=== PATIENT | male | born 1960 | race African-American/Black ===

== ENCOUNTER 2016-05-28 05:53 | Day surgery (SDC) ==
[2016-05-22 16:04] LABS: MANUAL DIFF NEEDED? NO
[2016-05-22 16:05] LABS: BASO% 0.4 % (0.0-0.8); EOS% 1.8 % (0.0-10.0); HEMATOCRIT 43.4 % (42.0-52.0); HEMOGLOBIN 15.1 g/dL (14.0-18.0); LYMPH# 1.63 X1000 (1.2-3.4); LYMPH% 29.6 % (20.5-51.1); MCH 26.6 PG (27-31); MCHC 34.8 g/dL (33-37); MCV 76.5 FL (81-99); MONO# 0.41 X1000 (0.11-0.59); MONO% 7.5 % (1.7-9.3); NEUT% 60.7 % (42.2-75.2); PLT 278 X1000 (130-400); RBC 5.67 XMIL (4.7-6.1)
--- NOTE | 2016-05-22 16:07 | EKG Report ---
Test Performed on : 05/22/2016 3:49:50 PM Test Reason : PAT Blood Pressure : / mmHG Vent. Rate : 082 BPM Atrial Rate : 082 BPM P-R Int : 172 ms QRS Dur : 098 ms QT Int : 380 ms P-R-T Axes : 053 -27 047 degrees QTc Int : 443 ms Normal sinus rhythm. Nonspecific T wave abnormality Abnormal ECG No previous ECGs available Confirmed by Keri HANSON, Cyril Peter ([id number]) on 05/24/2016 1:15:10 PM
[2016-05-22 16:31] LABS: AGAP 14; BUN 12 mg/dL (8-22); CALCIUM 8.6 mg/dL (8.8-10.2); CHLORIDE 100 mmol/L (98-107); COSMO 280; POTASSIUM 4.2 mmol/L (3.5-5.1); SODIUM 136 mmol/L (136-145); TCO2 22 mmol/L (25-35)
[2016-05-28] MEDS ORDERED: PEPCID ONE (06:34)
[2016-05-28] MEDS ORDERED: REGLAN ONE (06:35)
[2016-05-28] MEDS ORDERED: LR 1,000 ML ONE ×2 (06:35→15:05)
[2016-05-28] MEDS ORDERED: GENTAMICIN 80 MG/NS 50 ML ONE (06:35)
[2016-05-28] MEDS ORDERED: KEFZOL 2 GM/D5W 50 ML ONE (06:35)
[2016-05-28] MEDS ORDERED: MARCAINE 0.25% PF ONE ×3 (08:01→12:20)
[2016-05-28] MEDS ORDERED: NEOSPORIN G.U. IRRIGANT ONE (08:01)
[2016-05-28] MEDS: MORPHINE ONE ×5 (12:55→13:47)
[2016-05-28] MEDS ORDERED: FENTANYL ONE (12:58)
[2016-05-28] MEDS ORDERED: DIPRIVAN 1% ONE (12:58)
[2016-05-28] MEDS ORDERED: B & O 15A SUPP ONE (13:04)
[2016-05-28] MEDS ORDERED: PERCOCET-5 ONE (14:09)
[2016-05-28] MEDS ORDERED: ZOFRAN ONE (15:05)
[2016-05-28] MEDS ORDERED: QUELICIN (DOSE) ONE (15:05)
[2016-05-28] MEDS ORDERED: XYLOCAINE-MPF 2% ONE (15:05)
[2016-05-28] MEDS ORDERED: DECADRON ONE (15:05)
[2016-05-28] MEDS ORDERED: ROBINUL ONE (15:05)
[2016-05-28] MEDS ORDERED: ZEMURON ONE (15:05)
[2016-05-28 15:19] VITALS: BP 131/73
--- NOTE | 2016-05-29 15:12 | OPERATIVE NOTE ---
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 PROCEDURE: Implantation of inflatable penile prosthesis, AMS 700 series. HISTORY AND FINDINGS: Mr. England has erectile dysfunction not responding to p.o. medication such as Cialis and Viagra. He decided to have a penile prosthesis, multi-component inflatable variety. The patient and his were inform about the procedure, the risks and benefits. was given about infection, erosion, leakage, etc. DESCRIPTION OF PROCEDURE: The patient was taken to the operating room and was induced with general anesthesia. He was prepped and draped with a 10 minute prep of Betadine scrub and solution. One Galarza catheter was inserted into the bladder and connected to a bedside drainage bag. We decided to do the prepubic approach. One transverse incision was made directly over the symphysis pubis. The inferior and superior flaps were raised. The rectus fascia was incised longitudinally about 1 inch or less. The retropubic space was developed for the placement of the reservoir. We put a 100 mL reservoir and put in 100 mL of normal saline. The fascia was closed with 2-0 Vicryl sutures. The inferior flap was dissected further. The corpora cavernosa on either side was identified. The corpora where found to be intact. We did a longitudinal corporotomy with Bovie cautery. There was not much bleeding from the corpora which would testify to the fact that it was vasculogenic in nature. Then 2-0 PDS sutures were employed on both sides of the corpora incision. The dilatation was done to start with Hegar dilators and then we did Morse dilators. We had to use Metzenbaum scissors also for dissection all the way to the glans penis. Measurements were done. It measured both proximally and distally about 25 cm and the left side measured 24. We decided to have 21 cm cylinders CX type with 3 cm rear-tip extenders which would be 24 cm in total. The placement was slightly difficult but it went very well. Both proximal and distal ends were placed correctly. We did not have any injury to the urethra or to the glans penis or any other structures. The corporotomies were closed with the pre- placed PDS sutures. Thereafter, the pump was placed in the left hemiscrotum, all the way to the bottom of the scrotum. Then 2-0 Vicryl sutures were put near the external abdominal ring or base of the scrotum to prevent migration of the pump. Hemostasis was satisfactory. Wound was irrigated with antibiotic solutions. Thereafter, connection was made from the pump to the reservoir with straight connectors. The excess of the tubing was buried under the superior flap. Blood loss was 50 mL instruments. Instruments and sponge counts and needle counts were correct. [place] were used for the skin. The catheter was continued. The patient tolerated the procedure well and returned to the recovery room in stable condition.
== END 2016-05-28 15:00 | disposition home or self-care (01) ==
LOC: OPS 05:53
PROVIDERS: ATTEND Specialist
DX: N52.8 Other male erectile dysfunction (principal); E11.69 Type 2 diabetes mellitus with other specified complication; M54.9 Dorsalgia, unspecified; I10 Essential (primary) hypertension; F17.210 Nicotine dependence, cigarettes, uncomplicated; G47.33 Obstructive sleep apnea (adult) (pediatric); I73.9 Peripheral vascular disease, unspecified; M19.90 Unspecified osteoarthritis, unspecified site; Z79.899 Other long term (current) drug therapy; Z79.84 Long term (current) use of oral hypoglycemic drugs; Z86.010 Personal history of colon polyps; Z86.73 Personal history of transient ischemic attack (TIA), and cerebral infarction without residual deficits; Z82.49 Family history of ischemic heart disease and other diseases of the circulatory system
CPT/HCPCS: 80048; 82948; 85025; 93005; 93010; J0330; J0690; J1100; J1580; J2270; J2405; J3010; J7120; S0020